=== PATIENT | male | born 1960 | race African-American/Black ===

== ENCOUNTER 2017-10-10 08:39 | Inpatient (IN) | END 2017-11-06 20:15 | disposition home or self-care (01) | DRG 844 ==

== ENCOUNTER 2017-12-21 16:45 | Inpatient (IN) | END 2018-01-15 18:00 | DRG 870 ==

== ENCOUNTER 2018-04-04 18:24 | Inpatient (IN) | END 2018-06-28 04:05 | disposition EXP | DRG 4 ==

== ENCOUNTER 2018-04-17 22:01 | Inpatient (IN) | END 2018-06-28 04:05 | disposition EXP | DRG 4 ==